=== PATIENT | female | born 1995 | race Hispanic/Latino ===

== ENCOUNTER 2017-01-06 08:48 | Emergency (ER) | payer OTHER ==
[2017-01-06 08:48] VITALS: BMI 23.9
[2017-01-06 09:18] VITALS: O2SAT 98
[2017-01-06] MEDS ORDERED: Alum-Mag Hydrox-Simethicone Susp (30 mL) PO STA (09:42)
[2017-01-06] MEDS ORDERED: Sodium Chloride 0.9% 1,000 ML IV STA (09:44)
[2017-01-06 09:56] LABS: BASO # 0.1 K/uL (0.0-0.2); BASO % 0.5 % (0.0-2.0); EOS # 0.1 K/uL (0.0-0.7); EOS % 0.5 % (0.0-4.0); HEMATOCRIT 41.8 % (34.0-47.0); LYMPH # 1.4 K/uL (1.0-4.3); LYMPH % 8.5 % (20.0-40.0); MEAN CELL VOLUME 87.3 fl (81.0-99.0); MEAN CORPUSCULAR HEMOGLOBIN 28.7 pg (27.0-31.0); MEAN CORPUSCULAR HGB CONC 32.9 g/dL (33.0-37.0); MEAN PLATELET VOLUME 9.7 fl (7.2-11.7); MONO # 0.8 K/uL (0.0-0.8); NEUT # 14.3 K/uL (1.8-7.0); NEUT % 85.5 % (50.0-75.0); PLATELET COUNT 206 K/uL (130-400); WHITE BLOOD COUNT 16.7 K/uL (4.8-10.8)
--- NOTE | 2017-01-06 10:08 | ED PDOC ---
HPI: Abdomen Time Seen by Provider: 01/06/17 09:27 Chief Complaint (Nursing): Abdominal Pain Chief Complaint (Provider): Epigastric Pain History Per: Patient History/Exam Limitations: no limitations Onset/Duration Of Symptoms: Days (x1) Current Symptoms Are (Timing): Still Present Additional Complaint(s): Lynsey Ramos is a 21 year old female presenting to the ED for an evaluation of abdominal pain and vomiting occurring since yesterday morning prior to arrival. The patient reports constant epigastric pain previously radiating to her chest, but upon evaluation only localized to epigastric area. The patient reports nonbloody vomiting occurring several times last night. She reports taking Pepto Bismol for her symptoms with mild relief. The patient also report drinking small amounts of wine, about 1-2 glasses within the last week. She also states associated shortness of breath when the abdominal pain is bad and has had no bowel movements for the past couple of days. The patient denies back pain or fever. PMD: None Provided Past Medical History Reviewed: Historical Data, Nursing Documentation, Vital Signs Vital Signs: Last Vital Signs Temp 99.1 F 01/06/17 09:06 Pulse 93 H 01/06/17 09:06 Resp 18 01/06/17 09:06 BP 110/60 01/06/17 09:06 Pulse Ox 98 01/06/17 14:34 - Medical History PMH: Anxiety, Depression (no meds), Gastritis Denies: Diabetes, Hepatitis, HIV, HTN, Chronic Kidney Disease, Seizures, Sexually Transmitted Disease - Surgical History Surgical History: No Surg Hx - Family History Family History: States: Unknown Family Hx - Social History Current smoker - smoking cessation education provided: No Ex-Smoker (has not smoked in the last 12 months): No Alcohol: Social Drugs: Cannabis - Home Medications Home Medications: Ambulatory Orders Medication Instructions Recorded LORazepam [Ativan] 0.5 mg PO AMHS #30 tab 06/18/15 Sertraline [Zoloft] 25 mg PO HS #30 tab 06/18/15 Sertraline HCl [Zoloft] 25 mg PO HS #20 tab 12/14/15 Erythromycin 0.5% [Erythromycin] 1 applic LEFTEYE Q6 #1 tube 03/10/16 Tramadol HCl [Ultram] 50 mg PO BID PRN #14 tablet 03/10/16 Famotidine [Pepcid] 20 mg PO DAILY #14 tab 01/06/17 Omeprazole 20 mg PO DAILY #30 capsule. 01/06/17 - Allergies Allergies/Adverse Reactions: Allergies Allergy/AdvReac Type Severity Reaction Status Date / Time kareen Allergy RASH Verified 01/06/17 09:14 Review of Systems ROS Statement: Except As Marked, All Systems Reviewed And Found Negative Constitutional: Negative for: Fever Respiratory: Positive for: Shortness of Breath Gastrointestinal: Positive for: Vomiting, Abdominal Pain (epigastric), Other ( no bowel movements). Negative for: Hematemesis Musculoskeletal: Negative for: Back Pain Physical Exam - Reviewed Nursing Documentation Reviewed: Yes Vital Signs Reviewed: Yes - Physical Exam Appears: Positive for: Non-toxic, No Acute Distress Head Exam: Positive for: ATRAUMATIC, NORMOCEPHALIC Skin: Positive for: Normal Color, Warm, Dry Eye Exam: Positive for: Normal appearance, EOMI ENT: Positive for: Normal ENT Inspection Neck: Positive for: Normal, Painless ROM, Supple Cardiovascular/Chest: Positive for: Regular Rate, Rhythm, Chest Non Tender. Negative for: Edema, Murmur Respiratory: Positive for: Normal Breath Sounds. Negative for: Respiratory Distress Gastrointestinal/Abdominal: Positive for: Soft, Tenderness (epigastric tenderness to right upper quadrant) Back: Positive for: Normal Inspection Extremity: Positive for: Normal ROM. Negative for: Deformity Neurologic/Psych: Positive for: Alert, Oriented (x3). Negative for: Motor/ Sensory Deficits - Laboratory Results Result Diagrams: 01/06/17 09:52 01/06/17 09:52 - ECG ECG: Positive for: Interpreted By Me, Viewed By Me ECG Rhythm: Positive for: Normal QRS, Normal ST Segment, Sinus Rhythm. Negative for: ST/T Changes Rate: 79 O2 Sat by Pulse Oximetry: 98 (RA) Pulse Ox Interpretation: Normal - Radiology X-Ray: Interpreted by Me, Viewed By Me X-Ray Interpretation: No Acute Disease - Progress Re-evaluation Time: 15:32 Condition: Re-examined, Improved Medical Decision Making Medical Decision Making: Time:09:27 Impression: Abdominal Pain Differential includes but is not limited to acute pancreatitis, cholecystitis, and gastritis with other conditions considered Plan: * ED EKG * CMP * Lipase * CBC (with differential) * Maalox plus 30 ml PO * NS 0.9% 1,000 ml IV 1000 mls/hr * Pepcid 20 mg IVP * Zofran 4 mg IVP * [RAD] Chest One View * [US] Gallbladder * CT Abdomen & Pelvis IV contrast only * Reevaluation Gallbladder US: FINDINGS: LIVER: Measures 15.4 cm in length and appears unremarkable. The main portal vein appears patent with normal directional flow. No focal hepatic mass identified. No intrahepatic bile duct dilatation. GALLBLADDER: No gallstones. No gallbladder wall thickening or pericholecystic edema. Negative sonographic Denton's sign as assessed by the cloth bleaching range tender. COMMON BILE DUCT: Measures 6 mm. PANCREAS: Not well-visualized. RIGHT KIDNEY: Measures 9.4 x 5.5 x 4.1 cm. No obstructing calculus or hydronephrosis identified. AORTA: Limited visualization appears grossly unremarkable. IVC: Limited visualization appears grossly unremarkable. OTHER FINDINGS: None . IMPRESSION: No acute findings identified. 12:26 Patient is still having pain. Will order Dilaudid 0.[address] scan Abdomen & Pelvis IV contrast only. CT Abdomen: FINDINGS: LOWER THORAX: Unremarkable. LIVER: Unremarkable. No gross lesion or ductal dilatation. GALLBLADDER AND BILE DUCTS: Unremarkable. PANCREAS: Unremarkable. No gross lesion or ductal dilatation. SPLEEN: Unremarkable. ADRENALS: Unremarkable. No mass. KIDNEYS AND URETERS: Unremarkable. No hydronephrosis. No solid mass. VASCULATURE: Unremarkable. No aortic aneurysm. BOWEL: Unremarkable. No obstruction. No gross mural thickening. APPENDIX: Normal appendix. PERITONEUM: Unremarkable. No free fluid. No free air. LYMPH NODES: Unremarkable. No enlarged lymph nodes. BLADDER: Unremarkable. REPRODUCTIVE: Unremarkable. BONES: No acute fracture. OTHER FINDINGS: None. IMPRESSION: No acute findings Scribe Attestation: Documented by Jennifer Napoles, acting as a scribe for Lisa Jon MD. Provider Scribe Attestation: All medical record entries made by the Scribe were at my direction and personally dictated by me. I have reviewed the chart and agree that the record accurately reflects my personal performance of the history, physical exam, medical decision making, and the department course for this patient. I have also personally directed, reviewed, and agree with the discharge instructions and disposition. Disposition - Clinical Impression Clinical Impression: Abdominal pain, Cannabis abuse - Patient ED Disposition Is Patient to be Admitted: No Doctor Will See Patient In The: Office Counseled Patient/Family Regarding: Studies Performed, Diagnosis, Need For Followup - Disposition Referrals: [facility] [Outside] Disposition: Routine/Home Disposition Time: 15:32 Condition: GOOD Additional Instructions: Stop using marijuana. Take your medications as instructed. Follow up with your PCP in 2-3 days. Prescriptions: Famotidine [Pepcid] 20 mg PO DAILY #14 tab Omeprazole 20 mg PO DAILY #30 capsule. Instructions: Abdominal Pain (ED), Cannabis Abuse (ED), Gastritis (ED)
[2017-01-06 10:15] LABS: ALB/GLOB RATIO 1.4 (1.0-2.1); ALKALINE PHOSPHATASE 67 U/L (38-126); ALT/SGPT 45 U/L (9-52); AST/SGOT 32 U/L (14-36); BILIRUBIN,TOTAL 0.8 mg/dl (0.2-1.3); BLOOD UREA NITROGEN 21 mg/dl (7-17); CALCIUM 9.6 mg/dL (8.4-10.2); CARBON DIOXIDE 24 mmol/L (22-30); CHLORIDE 105 mmol/L (98-107); GFR AFRICAN-AMERICAN > 60; GLUCOSE,RANDOM 116 mg/dL (65-105); LIPASE 41 U/L (23-300); POTASSIUM 4.7 MMOL/L (3.6-5.0); SODIUM 140 mmol/l (132-148); TOTAL PROTEIN 8.4 G/DL (6.3-8.2)
--- NOTE | 2017-01-06 10:31 | RAD ---
PROCEDURE: CHEST RADIOGRAPH, 1 VIEW HISTORY: sob COMPARISON: The comparison made with prior chest radiograph dated 06/13/2015. FINDINGS: LUNGS: Clear. PLEURA: No pneumothorax or pleural fluid seen. CARDIOVASCULAR: Normal. OSSEOUS STRUCTURES: No significant abnormalities. VISUALIZED UPPER ABDOMEN: Normal. OTHER FINDINGS: None. IMPRESSION: No active disease.
[2017-01-06 11:35] LABS: BASOPHIL 1 % (0-2); NEUTROPHIL 83 % (42-75); TOTAL CELLS COUNTED 100
[2017-01-06 11:36] LABS: LARGE PLATELETS PRESENT
--- NOTE | 2017-01-06 12:10 | US ---
HISTORY: Epigastric pain ruq pain COMPARISON: CT abdomen and pelvis with contrast performed 01/10/15 TECHNIQUE: Sonographic evaluation of the right upper quadrant of the abdomen. FINDINGS: LIVER: Measures 15.4 cm in length and appears unremarkable. The main portal vein appears patent with normal directional flow. No focal hepatic mass identified. No intrahepatic bile duct dilatation. GALLBLADDER: No gallstones. No gallbladder wall thickening or pericholecystic edema. Negative sonographic Denton's sign as assessed by the stemhole borer and topper. COMMON BILE DUCT: Measures 6 mm. PANCREAS: Not well-visualized. RIGHT KIDNEY: Measures 9.4 x 5.5 x 4.1 cm. No obstructing calculus or hydronephrosis identified. AORTA: Limited visualization appears grossly unremarkable. IVC: Limited visualization appears grossly unremarkable. OTHER FINDINGS: None . IMPRESSION: No acute findings identified.
[2017-01-06] MEDS ORDERED: HYDROmorphone 0.5 mg/0.5 ml ISec ONE (12:34)
[2017-01-06] MEDS ORDERED: Sodium Chloride 0.9% 50 ML IV ONE (13:26)
[2017-01-06] MEDS ORDERED: Iohexol 300 100 ML IJ ONE (13:26)
--- NOTE | 2017-01-06 14:21 | CT ---
PROCEDURE: CT Abdomen and Pelvis with contrast HISTORY: abd pain vomiting COMPARISON: 01/10/2015 TECHNIQUE: Contrast dose: 95 cc of Omni 300 Radiation dose: Total exam DLP = 589 mGy-cm. This CT exam was performed using one or more of the following dose reduction techniques: Automated exposure control, adjustment of the mA and/or kV according to patient size, and/or use of iterative reconstruction technique. FINDINGS: LOWER THORAX: Unremarkable. LIVER: Unremarkable. No gross lesion or ductal dilatation. GALLBLADDER AND BILE DUCTS: Unremarkable. PANCREAS: Unremarkable. No gross lesion or ductal dilatation. SPLEEN: Unremarkable. ADRENALS: Unremarkable. No mass. KIDNEYS AND URETERS: Unremarkable. No hydronephrosis. No solid mass. VASCULATURE: Unremarkable. No aortic aneurysm. BOWEL: Unremarkable. No obstruction. No gross mural thickening. APPENDIX: Normal appendix. PERITONEUM: Unremarkable. No free fluid. No free air. LYMPH NODES: Unremarkable. No enlarged lymph nodes. BLADDER: Unremarkable. REPRODUCTIVE: Unremarkable. BONES: No acute fracture. OTHER FINDINGS: None. IMPRESSION: No acute findings
[2017-01-06 15:27] VITALS: PULSE 79
[2017-01-06 15:44] VITALS: BP 132/74; RESP 17; TEMP 98.3
--- NOTE | 2017-01-06 22:37 | CARD ---
APPROVED REPORT EKG Measurement Heart [id number] <Conclusion> Normal sinus rhythm with sinus arrhythmia Nonspecific T wave abnormality Abnormal ECG
== END 2017-01-06 16:27 | disposition home or self-care (01) ==
LOC: H.ER 08:48
DX: F12.10 Cannabis abuse, uncomplicated (principal); R10.11 Right upper quadrant pain; R10.13 Epigastric pain; Z87.891 Personal history of nicotine dependence
CPT/HCPCS: 71010; 74177; 76705; 80053; 81025; 83690; 85025; 93005; 96374; 96375; 99284; J1170; J2405; J7040; Q9967